=== PATIENT | female | born 1930 | race African-American/Black ===

== ENCOUNTER → 2018-12-02 | Outpatient (CLI) | payer MEDICARE ==
--- NOTE | 2018-12-03 11:25 | XCELERA REPORT ---
[address] [address] Lower Extremity Arterial Evaluation Name: DIANA MEDINA Age: 88 yrs Gender: Female : 1930 Patient Status: Outpatient Patient Location: [facility] Study Date: 12/02/2018 02:25 PM Procedure: A color flow and duplex scan of the lower extremity arteries was performed bilaterally with velocity and waveform anaylsis. Reason For Study: PVD Ordering Physician: MARILEE FROST Performed By: Ruben Garcia Measurements and Calculations Right Left CATTLE TRADER PSV 93.4 105.3 cm/sec Prox PFA PSV -95.5 -137.5cm/sec Prox SFA PSV 76.6 172.9 cm/sec Mid SFA PSV 14.5 -108.7cm/sec Dist SFA PSV -19.4 -300.3cm/sec Prox Pop A PSV 22.6 42.1 cm/sec Dist Pop A PSV -24.9 -144.9cm/sec Mid SIMEON PSV 23.4 cm/sec Dist SIMEON PSV 42.0 -9.6 cm/sec Dist COUNSELING CASE MANAGER PSV 14.7 23.0 cm/sec Dist Vale A 26.9 32.6 cm/sec PSV Oscar Pedis PSV 16.7 25.1 cm/sec Right Side Arterial Evaluation Normal velocity and triphasic waveforms noted in the Common Femoral artery. Monophasic with low velocity, spectral broadening from the Femoral to the infrageniculate arteries. Retrograde flow noted in the Femoral artery. Ankle Brachial index not obtained due to inability to occlude Brachial. No focal stenosis identified. Left Side Arterial Evaluation Normal velocity and triphasic waveforms noted in the Common Femoral artery. Biphasic with normal velocity, moderate spectral broadening from the Femoral to the Popliteal, same with low velocity in the Posterior Tibial. Monophasic in the Anterior Tibial, low velocity, spectral broadening. Retrograde flow in the Dorsalis Pedis. Ankle Brachial index not obtained due to inability to occlude Brachial. 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 Very complex, multi level disease. : MARILEE FROST > Marilee Frost
== END ==
LOC: SP 13:14
PROVIDERS: ATTEND Surgery
DX: I73.9 Peripheral vascular disease, unspecified (principal)
CPT/HCPCS: 93925